=== PATIENT | male | born 1940 | race Caucasian/White ===

== ENCOUNTER → 2016-04-22 | Outpatient (CLI) | payer OTHER, MEDICARE | LOC: MMPC 09:00 | PROVIDERS: ATTEND Internal Medicine | DX: Z79.01 Long term (current) use of anticoagulants (principal); Z51.81 Encounter for therapeutic drug level monitoring; Z86.711 Personal history of pulmonary embolism; Z86.718 Personal history of other venous thrombosis and embolism | CPT/HCPCS: 85610 ==

== ENCOUNTER → 2016-05-02 | Outpatient (CLI) | payer OTHER, MEDICARE | LOC: MMPC 10:00 | PROVIDERS: ATTEND Podiatrist Foot & Ankle Surgery | DX: L60.9 Nail disorder, unspecified (principal); E11.9 Type 2 diabetes mellitus without complications; M10.9 Gout, unspecified; Z86.718 Personal history of other venous thrombosis and embolism | CPT/HCPCS: 99212; G0463 ==

== ENCOUNTER → 2016-05-27 | Outpatient (CLI) | payer OTHER, MEDICARE | LOC: MMPC 09:00 | PROVIDERS: ATTEND Internal Medicine | DX: Z79.01 Long term (current) use of anticoagulants (principal); Z51.81 Encounter for therapeutic drug level monitoring; Z86.718 Personal history of other venous thrombosis and embolism | CPT/HCPCS: 85610 ==

== ENCOUNTER → 2016-06-01 | Outpatient (CLI) | payer OTHER, MEDICARE ==
[2016-06-01 07:46] LABS: BASOPHILS # (AUTO) 0.03 10*3/UL; BASOPHILS % (AUTO) 0.3 % (0-1); EOSINOPHILS % (AUTO) 3.6 % (0-8); HEMATOCRIT 42.5 % (42.0-52.0); HEMOGLOBIN 13.9 g/dL (14.0-18.0); IMM GRAN % (AUTO) 0.3 % (0-5); IMM GRAN# (AUTO) 0.03 10*3/UL; LYMPHOCYTES # (AUTO) 1.27 10*3/uL; LYMPHOCYTES % (AUTO) 11.3 % (10-50); MEAN CORPUSCULAR HEMOGLOBIN 31.7 PG (27-31); MEAN CORPUSCULAR HGB CONC 32.7 g/dL (33-37); MEAN PLATELET VOLUME 10.5 FL (7.4-12.2); MONOCYTES # (AUTO) 0.86 10*3/UL (0.3-0.8); MONOCYTES % (AUTO) 7.6 % (5-15); NEUTROPHILS # (AUTO) 8.66 10*3/UL; NEUTROPHILS % (AUTO) 76.9 % (50-80); RDW COEFFICIENT OF VARIATION 14.9 % (11.5-14.5); RED BLOOD COUNT 4.39 10^6/uL (4.70-6.10); WHITE BLOOD COUNT 11.25 10^3/uL (4.8-10.8)
[2016-06-01 07:52] LABS: PLATELET MORPHOLOGY COMMENT NORMAL MORPHOLOGY (NORM)
[2016-06-01 08:03] LABS: BILIRUBIN,TOTAL 0.5 mg/dL (0.3-1.2); BUN/CREATININE RATIO 26.25 (6-20); CALCIUM 10.1 mg/dL (8.7-10.7); CREATININE 0.8 mg/dL (0.70-1.50); LDL CHOLESTEROL,CALCULATED 59.8 mg/dL; POTASSIUM 4.4 meq/L (3.8-5.2); TOTAL PROTEIN 6.7 g/dL (6.1-8.0)
[2016-06-01 08:10] LABS: CREATININE, URINE 152.5 MG/DL (15-500)
== END ==
LOC: LAB 07:14
PROVIDERS: ATTEND Internal Medicine
DX: E11.9 Type 2 diabetes mellitus without complications (principal); Z79.4 Long term (current) use of insulin; E78.5 Hyperlipidemia, unspecified; I10 Essential (primary) hypertension; D64.9 Anemia, unspecified; Z12.5 Encounter for screening for malignant neoplasm of prostate
CPT/HCPCS: 36415; 80053; 80061; 82043; 82550; 83036; 84550; 85025; G0103

== ENCOUNTER → 2016-06-12 | Outpatient (CLI) | payer OTHER, MEDICARE | LOC: MMPC 11:11 | PROVIDERS: ATTEND Internal Medicine | DX: E11.9 Type 2 diabetes mellitus without complications (principal); I10 Essential (primary) hypertension; J44.9 Chronic obstructive pulmonary disease, unspecified; I25.10 Atherosclerotic heart disease of native coronary artery without angina pectoris; J98.4 Other disorders of lung; E78.5 Hyperlipidemia, unspecified; M10.9 Gout, unspecified; N40.0 Benign prostatic hyperplasia without lower urinary tract symptoms; E66.9 Obesity, unspecified; G20 Parkinson's disease; Z86.711 Personal history of pulmonary embolism | CPT/HCPCS: 99215; G0463 ==

== ENCOUNTER → 2016-07-23 | Outpatient (CLI) | payer OTHER, MEDICARE | LOC: MMPC 11:11 | PROVIDERS: ATTEND Nurse Practitioner | DX: J44.9 Chronic obstructive pulmonary disease, unspecified (principal) | CPT/HCPCS: 99213; G0463 ==

== ENCOUNTER → 2016-07-29 | Outpatient (CLI) | payer OTHER, MEDICARE | LOC: MMPC 09:00 | PROVIDERS: ATTEND Internal Medicine | DX: Z79.01 Long term (current) use of anticoagulants (principal); Z51.81 Encounter for therapeutic drug level monitoring; Z86.711 Personal history of pulmonary embolism; Z86.718 Personal history of other venous thrombosis and embolism | CPT/HCPCS: 85610 ==

== ENCOUNTER → 2016-08-26 | Outpatient (CLI) | payer OTHER, MEDICARE | LOC: MMPC 09:00 | PROVIDERS: ATTEND Internal Medicine | DX: Z79.01 Long term (current) use of anticoagulants (principal); Z51.81 Encounter for therapeutic drug level monitoring; Z86.718 Personal history of other venous thrombosis and embolism | CPT/HCPCS: 85610 ==

== ENCOUNTER → 2016-09-10 | Outpatient (CLI) | payer OTHER, MEDICARE ==
[2016-09-10 15:06] LABS: HEMOGLOBIN A1C 6.66 % (4.2-6.0)
== END ==
LOC: LAB 14:22
PROVIDERS: ATTEND Internal Medicine
DX: E11.9 Type 2 diabetes mellitus without complications (principal); Z79.4 Long term (current) use of insulin
CPT/HCPCS: 36415; 83036

== ENCOUNTER → 2016-09-11 | Outpatient (CLI) | payer OTHER, MEDICARE ==
[2016-09-11 09:10] LABS: CREATININE, URINE 151.2 MG/DL (15-500)
== END ==
LOC: LAB 08:15
PROVIDERS: ATTEND Internal Medicine
DX: E11.9 Type 2 diabetes mellitus without complications (principal); Z79.4 Long term (current) use of insulin
CPT/HCPCS: 82043

== ENCOUNTER 2016-09-23 15:20 | Emergency (ER) | payer OTHER, MEDICARE ==
[2016-09-23] MEDS ORDERED: ONDANSETRON 4 MG/2 ML VIAL IVP ONE (15:47)
[2016-09-23] MEDS ORDERED: IPRATROPIUM/ALBUTEROL SULFATE 3 ML NEB NEB ONE ×2 (15:47→15:49)
[2016-09-23] MEDS ORDERED: Sodium Chloride 0.9% 1,000 ML PRIMARY IV ONE (15:47)
[2016-09-23 15:48] VITALS: RESP 18; TEMP 96.6
--- NOTE | 2016-09-23 15:54 | PDOC ---
Upper Respiratory HPI - General Chief Complaint: Cough / URI Stated Complaint: "thinks he might have pneuomonia" Date Seen by Provider: 09/23/16 Time Seen by Provider: 15:49 Source: POSITIVE: Patient, Spouse Exam Limitations: POSITIVE: No limitations Nurse's Notes Reviewed & Considered: Yes - History of Present Illness Initial Comments: Patient comes in today with a chief complaint of shortness of breath. Patient with cough, shortness of breath, sweats, and increased oxygen requirements. His symptoms began over the weekend and began to escalate today. His states he had a fever to 100 on Friday. Patient's baseline oxygen requirements are 3 L presently that is only sufficient to maintain his oxygenation at 90%. He does have a headache, denies any sore throat, he does have dry mucous membranes, no chest pain, he has a productive cough, denies any nausea vomiting or diarrhea, no hematuria or dysuria however he does have difficulty urinating secondary to prostate enlargement and urethral stricture. Denies any arthralgias, but he does have mild myalgias. Timing: REPORTS: Constant, Getting Worse Duration: <1 week Severity: Moderate Modifying Factors: improves with: Coughing Associated Symptoms: REPORTS: Sweating, Sinus Drainage, Cough, Productive Cough , Shortness of Breath Similar Symptoms Previously: Yes Recently seen/treated/hospitalized: No Any Prior Injuries Related to Current Complaint?: No - Patient Home Medications Home Medications: Home Medications Aspirin [Baby Aspirin] 1 tab ORAL QD tab 07/10/10 Docusate Sodium [Colace] 1 cap ORAL BID capsule 07/10/10 Vitamin D-3 2,000 unit PO QD 90 Days 05/09/11 Terreton, Insulin Disposable [Pen Terreton] 1 each QD #100 unit 10/09/15 Blood Sugar Diagnostic [Freestyle Lite Test Strips] 1 each QID #360 strip Insulin Lispro Flexpen Inj [Humalog Flexpen Inj] 0 - 12 unit SQ AC #1 vial 03/11 Allopurinol 1 tab PO QD #90 tab 06/12/16 Carbidopa/Levodopa [Sinemet Cr 50-200 Tablet] 1 tab PO BID #180 tab 06/12/16 Finasteride 1 tab-cap PO DAILY #90 tab 06/12/16 Losartan Potassium 1 tab PO DAILY #90 tab 06/12/16 Metformin HCl [Glucophage] 1 tab ORAL BID #180 tab 06/12/16 Pravastatin Sodium [Pravachol] 1 tab PO QHS #90 tab 06/12/16 Tamsulosin HCl [Flomax] 0.4 mg ORAL QHS #90 capsule 06/12/16 Venlafaxine HCl [Venlafaxine Hcl Er] 1 cap PO DAILY #90 cap 06/12/16 Warfarin Sodium 1 - 2 tab PO DAILY #180 tab 06/13/16 Albuterol/Ipratrop Neb Soln [Duoneb Neb Soln] 3 ml INH QID #120 inh 07/23/16 Dextromethorphan HBr/Chlor-Mal [Robitussin Long-Acting Liq] 5 ml PO [id number] PRN #180 ml 07/23/16 Guaifenesin/Codeine Phosphate [Guaifen-Codeine 100-10 Mg/5 Ml] 5 ml PO QHS PRN # 45 ml 07/23/16 Insulin Glargine SoloStar Inj [Lantus Solostar Inj] Sample #4 07/23/16 Fluticasone/Vilanterol [Breo Ellipta 100-25 Mcg Inh] Sample #6 09/11/16 Insulin Glargine SoloStar Inj [Lantus Solostar Inj] Sample #1 09/11/16 Ropinirole HCl 1 tab ORAL TID #270 tab 09/11/16 Clonazepam 0.5 - 1 tab ORAL TID PRN #180 tab 09/17/16 - Patient Allergies Allergies/Adverse Reactions: Allergies Allergy/AdvReac Type Severity Reaction Status Date / Time propoxyphene napsylate Allergy Intermediate RASH Verified 09/23/16 15:29 [From Darvocet-N 100] zolpidem tartrate Allergy Intermediate "made him Verified 09/23/16 15:29 [Zolpidem Tartrate] go crazy" Past Medical History - heen HEENT History: Hard of Hearing, Dentures/Partials Additional HEENT History: HEARING AIDS. GLASSES Cardiovascular History: Hypertension, Previous SD, CAD, DVTs, Hyperlipidemia Additional Cardiovasular History: HEART CATH WITHOUT STENTING Respiratory History: COPD, Sleep Apnea, Home Oxygen Use, Pulmonary Embolism Additional Respiratory History: 3 LITERS O2 WHEN MOBILE, 4L O2 ON HOME CONCENTRATOR Gastrointestinal History: GERD Genitourinary History: Denies History Endocrine History: Type 2 Diabetes (oral) Additional Endocrine History: HYPERPARATHYROIDISM Musculoskeletal History: Arthritis, Gout Prosthesis or Implant: Yes (BILAT KNEES) Neurological History: Migraines Additional Neurological History: INFREQUENTLY Blood Disorders: Denies History Additional Blood Disorders History: ANTICOAGULATION THERAPY FOR DVT'S Psychiatric History: Depression History of Sexually Transmitted Diseases: No Male Reproductive History: Denies History Cancer History: Skin In Past Year Been Physically Harmed or Verbally Threatened: No History of MDRO: No History of Other Communicable Diseases: No Tobacco Use: Never Smoker Alcohol Use: None Substance Use Type: None Previous Surgical History: Yes Type / Date of Surgery: OSCAR/ CORONARY ANGIOPLASTY/ HEMORRHOID REPAIR/ HIATAL HERNIA SX/ BILAT TKA/MELANOMA Anesthesia Reactions: No Malignant Hyperthermia: No Significant Family History: No pertinent family hx Additional Family History: MOTHER ROS - Limitations ROS Limitations: No Limitations Constitution: REPORTS: Diaphoresis Cardiovascular: REPORTS: Denies Cardiac Symptoms Respiratory: REPORTS: Cough Productive, Hurts To Breathe, Shortness Of Breath Neurological: REPORTS: Headache Gastrointestinal: REPORTS: Denies GI Symptoms Endocrine: REPORTS: Elevated Glucose Musculoskeletal: REPORTS: Muscle Aches Genitourinary: REPORTS: Difficulty Urinating Eyes: REPORTS: Denies Symptoms ENT: REPORTS: Denies Symptoms Skin: REPORTS: Denies Skin Symptoms Lympathic: REPORTS: Denies Lympathic Symptoms Immunologic: POSITIVE: Denies Symptoms Psychiatric: POSITIVE: Denies Psych Symptoms Upper Respiratory/Fever Exam - General Appearance General Appearance: REPORTS: Alert, Cooperative, No Evidence of Trauma, Mild Distress - HEENT HEENT: POSITIVE: Head Inspection Nml, Eyes Inspection Nml, Ears Inspection Nml, Nose Inspection Nml, Pharynx Inspect. Nml, PERRL, EOMI, Dry Mucous Membranes - Neck Neck: REPORTS: Normal Inspection, Supple - Respiratory Respiratory: REPORTS: Prolonged Expirations, Accessory Muscle Use, Decreased Air Movement - Abdomen Abdomen: Soft: (All Quadrants), Normal Bowel Sounds: (All Quadrants), Denies Tenderness: (All Quadrants), Distention: (All Quadrants) - Cardiovascular Cardiovascular: REPORTS: Regular Rate and Rhythm, Heart Sounds Normal, No Murmur , No Gallop, No Friction Rub, No JVD - Skin Skin: REPORTS: Intact, Normal For Race, Warm, Dry, No Rash - Extremities Extremity: Non-Tender: (All Extremities), Normal ROM: (All Extremities), Normal Inspection: (All Extremities), Pelvis Stable: (All Extremities) - Neurological / Psychological Neurological: POSITIVE: Affect Apporpriate, Oriented X3, Motor Normal, Sensation Normal Upper Resp/Fever Progress - Results Reviewed by me Xrays/CTs/US Reviewed by me: Yes Discussed with Radiologist: Yes Lab Results Reviewed: Yes Lab Results:: Laboratory Results 09/23/16 09/23/16 09/23/16 Range/Units 15:47 16:01 16:12 WBC 8.12 (4.8-10.8) 10^3/uL RBC 4.38 L (4.70-6.10) 10^6/uL Hgb 13.6 L (14.0-18.0) g/dL Hct 42.2 (42.0-52.0) % MCV 96.3 H (80-90) FL MCH 31.1 H (27-31) PG MCHC 32.2 L (33-37) g/dL RDW Std Deviation 52.7 H (39-50) fL RDW Coeff of Cheng 15.3 H (11.5-14.5) % Plt Count 177 (140-350) 10*3/uL MPV 10.8 (7.4-12.2) FL Immature Gran % (Auto) 0.5 (0-5) % Neut % (Auto) 65.8 (50-80) % Lymph % (Auto) 19.6 (10-50) % [place] % (Auto) 10.5 (5-15) % Eos % (Auto) 3.4 (0-8) % Baso % (Auto) 0.2 (0-1) % Immature Gran # (Auto) 0.04 10*3/UL Neut # (Auto) 5.34 10*3/UL Lymph # (Auto) 1.59 10*3/uL [place] # (Auto) 0.85 H (0.3-0.8) 10*3/UL Eos # (Auto) 0.28 10*3/UL Baso # (Auto) 0.02 10*3/UL WBC Morphology Comment Normal morphology (NORM) Plt Morphology Comment Normal morphology (NORM) RBC Morph Comment Normal morphology (NORM) PT 10.8 (9.7-11.4) secs INR 1.05 (0.00-5.90) N/A D-Dimer < 0.19 (0.00-0.59) mg/L VBG pH 7.40 (7.32-7.42) VBG pCO2 47 (45-55) mmHg VBG HCO3 29 H (22-26) mmol/L VBG Base Excess 4 H (-2-2) MMOL/L Sodium 140 (135-145) meq/L Potassium 4.3 (3.8-5.2) meq/L Chloride 102 (98-112) meq/L Carbon Dioxide 29 (23-33) meq/L Anion Gap 9 (5-20) BUN 18 (7-22) mg/dL Creatinine 0.8 (0.70-1.50) mg/dL Estimated GFR (>60 ml/min/1.73m(2)) BUN/Creatinine Ratio 22.50 H (6-20) Glucose 132 H (78-110) mg/dL Mean Blood Glucose 140.773 mg/dL Hemoglobin A1c 6.81 H (4.2-6.0) % Calculated Osmolality 293.0 H (267-292) mOsm/kg Lactic Acid 1.4 (0.70-2.10) MMOL/L Calcium 9.4 (8.7-10.7) mg/dL Magnesium 1.8 (1.6-2.4) mg/dL Total Bilirubin 0.3 (0.3-1.2) mg/dL AST 19 L (21-57) IU/L ALT 31 (21-72) IU/L Alkaline Phosphatase 80 (38-126) IU/L C-Reactive Protein 2.3 H (0.0-0.9) mg/dL NT-Pro-B Natriuret Pep 64.9 (0-125) PG/ML Total Protein 6.2 (6.1-8.0) g/dL Albumin 3.6 (3.5-4.8) g/dL Globulin 2.7 (2.50-4.10) g/dL Albumin/Globulin Ratio 1.30 (1.3-2.0) mg/g EKG Interpretation:: POSITIVE: Normal Sinus Rhythm - Patient's Progress Pain Medication Addressed: POSITIVE: Yes Re-Examine Time: 19:39 Status: POSITIVE: Improved MDM / ED Course: Patient was examined, IV started, blood drawn and sent to the lab for studies, radiographic examinations were obtained. Patient received IV fluids of normal saline, IV Rocephin, oral azithromycin. Findings: CBC shows a normal white count with a slight anemia. Comprehensive metabolic panel is unremarkable. BUN is normal. D-dimer is normal. Chest x- ray per my interpretation shows an enlarged heart and pulmonary vascular congestion. CT scan shows no PE, no pneumonia, there is atelectasis present. INR is 1. Assessment: Shortness of breath. This appears to be a case of a viral upper respiratory infection resulting in shortness of breath couple with his obese abdomen and enlarged heart. INR is subtherapeutic. Plan: Discharge home on azithromycin 500 mg by mouth for 2 more days. He is to follow-up with Dr. Franklin for his INR. He is to return to the emergency room if fevers are over 102, increasing shortness of breath, or other concerns. Air Movement: Fair Antibiotics Given: Yes Nebulizer Treatment Given:: Yes Quality Measure Initiative: CAP: POSITIVE: Antibiotic(s), CXR or CT - Consult Counseled: POSITIVE: Patient, Family, RE: Lab Results, RE: Radiology Results, RE : DX, RE: Need for F/U Patient Care Time - Estimated PCT Patient Care Time (In Minutes): 45 Vital Signs - Recent Vital Signs Vital Signs: Vital Signs (Last 8 hours) Temp Pulse Resp BP Pulse Ox 09/23/16 15:20 96.6 F L 82 18 143/92 91 - VS Reviewed Vital Signs Reviewed: Yes Discharge Clinical Impression: Upper respiratory infection Discharge Disposition: Discharged to Home Condition: Stable Patient Instructions Given at Discharge: Upper Respiratory Infection (ED)
[2016-09-23 16:15] LABS: BASOPHILS # (AUTO) 0.02 10*3/UL; BASOPHILS % (AUTO) 0.2 % (0-1); EOSINOPHILS # (AUTO) 0.28 10*3/UL; EOSINOPHILS % (AUTO) 3.4 % (0-8); HEMATOCRIT 42.2 % (42.0-52.0); HEMOGLOBIN 13.6 g/dL (14.0-18.0); LYMPHOCYTES # (AUTO) 1.59 10*3/uL; MEAN CORPUSCULAR HEMOGLOBIN 31.1 PG (27-31); MEAN CORPUSCULAR HGB CONC 32.2 g/dL (33-37); MEAN CORPUSCULAR VOLUME 96.3 FL (80-90); MEAN PLATELET VOLUME 10.8 FL (7.4-12.2); MONOCYTES # (AUTO) 0.85 10*3/UL (0.3-0.8); MONOCYTES % (AUTO) 10.5 % (5-15); NEUTROPHILS # (AUTO) 5.34 10*3/UL; NEUTROPHILS % (AUTO) 65.8 % (50-80); RED BLOOD COUNT 4.38 10^6/uL (4.70-6.10)
[2016-09-23 16:16] LABS: PLATELET MORPHOLOGY COMMENT NORMAL MORPHOLOGY (NORM); RBC MORPHOLOGY COMMENT NORMAL MORPHOLOGY (NORM); WBC MORPHOLOGY COMMENT NORMAL MORPHOLOGY (NORM)
--- NOTE | 2016-09-23 16:16 | EKG ---
[address] [place] [address] Measurements Intervals [place] Rate: 76 P: -4 NE: 173 QRS: -24 QRSD: 141 T: 30 QT: 390 QTc: 420 Interpretive Statements SINUS RHYTHM BORDERLINE LEFT AXIS DEVIATION [QRS AXIS < -20] RIGHT BUNDLE BRANCH BLOCK [120+ ms QRS DURATION, UPRIGHT V1, 40+ ms S IN I/aVL/V4/V5/V6] MINIMAL VOLTAGE CRITERIA FOR LVH, CONSIDER NORMAL VARIANT [MEETS CRITERIA IN ONE OF: R(aVL), S(V1), R(V5), R(V5/V6)+S(V1)] Compared to ECG 07/25/2014 12:13:53 No significant changes Electronically Signed On 09-24-16 12:18:46 MDT by Cisco Dobson MD [email or web address]
[2016-09-23 16:24] LABS: VENOUS PH 7.4 (7.32-7.42)
[2016-09-23 16:30] LABS: BUN/CREATININE RATIO 22.5 (6-20); C-REACTIVE PROTEIN 2.3 mg/dL (0.0-0.9); CALCIUM 9.4 mg/dL (8.7-10.7); MAGNESIUM 1.8 mg/dL (1.6-2.4); SERUM ALBUMIN 3.6 g/dL (3.5-4.8)
[2016-09-23 16:32] LABS: HEMOGLOBIN A1C 6.81 % (4.2-6.0)
[2016-09-23] MEDS ORDERED: FUROSEMIDE 10 MG/1 ML - 4 ML IVP ONE (17:28)
[2016-09-23] MEDS ORDERED: AZITHROMYCIN 250 MG TABLET PO ONE (17:28)
[2016-09-23] MEDS ORDERED: cefTRIAXone Inj 2 GM in Sodium Chloride 0.9% 100 ML IV ONE (17:28)
--- NOTE | 2016-09-23 19:10 | DI ---
CT CTA CHEST NONCORONARY W/WO,09/23/2016 5:30 PM: Clinical History: Shortness of breath Previous Exam: July 22, 2014 Findings: Multiple helically acquired CT images are obtained through the chest following a CT chest angiogram p rotocol after intravenous administration of 100 mL of Isovue 300, and demonstrate a normal variant ao rta with the right subclavian are arising from the common carotid artery. There is deviation of the e sophagus and trachea around the left subclavian artery and left carotid artery. Pulmonary arteries are normal and symmetric without filling defects or truncation to suggest pulmonar y embolism. There is subsegmental atelectasis in both lung bases. The pulmonary veins are unremarkable. A few per ipheral vascular calcifications are seen. Mild degenerative changes of the spine are noted. There is some thickening of the esophagus which is not well evaluated on this exam. Impression: 1. No evidence of pulmonary embolism. 2. Thickening of the esophagus most consistent with esophagitis. 3. Subsegmental atelectasis in the lung bases.
--- NOTE | 2016-09-24 08:50 | DI ---
XR CXR 1VW,09/23/2016 3:47 PM: Clinical History: Shortness of breath, fever and cough Previous Exam: July 22, 2014 Findings: A single frontal radiograph of the chest is obtained, and demonstrate clear lungs. The cardiomediasti num and bony thorax are unremarkable. Impression: No acute disease.
== END 2016-09-23 20:05 | disposition home or self-care (01) ==
LOC: ER 15:20
DX: J06.9 Acute upper respiratory infection, unspecified (principal); R05 Cough; R50.9 Fever, unspecified; R51 Headache; E11.9 Type 2 diabetes mellitus without complications; I10 Essential (primary) hypertension; R06.02 Shortness of breath; Z86.718 Personal history of other venous thrombosis and embolism; Z79.01 Long term (current) use of anticoagulants; Z79.4 Long term (current) use of insulin
CPT/HCPCS: 36415 ×2; 71010; 71275; 80053; 82803; 83036; 83605; 83735; 83880; 85025; 85379; 85610; 86140; 86738; 87040; 93005; 93010; 94640; 96365; 96375; 99284 ×2; J7620; J0696; J2405; J7030; J7050

== ENCOUNTER → 2016-09-26 | Outpatient (CLI) | payer OTHER, MEDICARE ==
[2016-09-26 17:04] LABS: BUN/CREATININE RATIO 24.44 (6-20); CALCIUM 9.6 mg/dL (8.7-10.7); SERUM ALBUMIN 3.6 g/dL (3.5-4.8)
== END ==
LOC: LAB 15:34
PROVIDERS: ATTEND Internal Medicine
DX: E11.9 Type 2 diabetes mellitus without complications (principal); J44.9 Chronic obstructive pulmonary disease, unspecified; I25.10 Atherosclerotic heart disease of native coronary artery without angina pectoris; I10 Essential (primary) hypertension; E78.5 Hyperlipidemia, unspecified; E66.9 Obesity, unspecified; G62.89 Other specified polyneuropathies; Z86.711 Personal history of pulmonary embolism; Z86.718 Personal history of other venous thrombosis and embolism
CPT/HCPCS: 36415; 80053; 85610

== ENCOUNTER → 2016-09-27 | Outpatient (CLI) | payer OTHER, MEDICARE | LOC: MMPC 11:11 | PROVIDERS: ATTEND Nurse Practitioner | DX: J98.4 Other disorders of lung (principal) | CPT/HCPCS: 99213; G0463 ==

== ENCOUNTER → 2016-09-30 | Outpatient (CLI) | payer OTHER, MEDICARE | LOC: MMPC 09:00 | PROVIDERS: ATTEND Internal Medicine | DX: Z79.01 Long term (current) use of anticoagulants (principal); Z51.81 Encounter for therapeutic drug level monitoring; Z86.711 Personal history of pulmonary embolism; Z86.718 Personal history of other venous thrombosis and embolism | CPT/HCPCS: 85610 ==

== ENCOUNTER 2016-10-03 15:59 | Emergency (ER) | payer OTHER, MEDICARE ==
[2016-10-03] MEDS ORDERED: Sodium Chloride 0.9% 1,000 ML PRIMARY IV ONE (16:38)
[2016-10-03] MEDS ORDERED: NORMAL SALINE 10 ML SYRINGE FLUSH IVP PRN (16:38)
[2016-10-03 17:03] LABS: VENOUS PH 7.4 (7.32-7.42)
[2016-10-03 17:10] LABS: BASOPHILS # (AUTO) 0.05 10*3/UL; BASOPHILS % (AUTO) 0.5 % (0-1); EOSINOPHILS # (AUTO) 0.23 10*3/UL; EOSINOPHILS % (AUTO) 2.3 % (0-8); HEMATOCRIT 42.2 % (42.0-52.0); HEMOGLOBIN 13.7 g/dL (14.0-18.0); LYMPHOCYTES # (AUTO) 1.46 10*3/uL; MEAN CORPUSCULAR HGB CONC 32.5 g/dL (33-37); MEAN CORPUSCULAR VOLUME 95.5 FL (80-90); MEAN PLATELET VOLUME 10.7 FL (7.4-12.2); MONOCYTES # (AUTO) 0.91 10*3/UL (0.3-0.8); NEUTROPHILS # (AUTO) 7.38 10*3/UL; NEUTROPHILS % (AUTO) 73.4 % (50-80); RED BLOOD COUNT 4.42 10^6/uL (4.70-6.10)
[2016-10-03 17:14] LABS: PLATELET MORPHOLOGY COMMENT NORMAL MORPHOLOGY (NORM); RBC MORPHOLOGY COMMENT NORMAL MORPHOLOGY (NORM); WBC MORPHOLOGY COMMENT NORMAL MORPHOLOGY (NORM)
[2016-10-03 17:25] VITALS: RESP 18; TEMP 99.2
[2016-10-03] MEDS ORDERED: IPRATROPIUM/ALBUTEROL SULFATE 3 ML NEB NEB ONE ×2 (17:29→17:32)
[2016-10-03 17:38] LABS: BUN/CREATININE RATIO 22.72 (6-20); C-REACTIVE PROTEIN 1.6 mg/dL (0.0-0.9); CALCIUM 9.5 mg/dL (8.7-10.7); SERUM ALBUMIN 3.6 g/dL (3.5-4.8)
--- NOTE | 2016-10-03 18:20 | DI ---
HISTORY: Cough and fever. COMPARISON: 09/23/2016. FINDINGS: Borderline cardiomegaly is noted. Compared to the previous examination of 09/23/2016, the is mild pulmonary vascular congestion in both lower lung perales, especially in the left lung base. The lung perales are otherwise essentially clear. IMPRESSION: 1. Borderline cardiomegaly is noted. 2. Mild pulmonary vascular congestion in both lower lung perales, especially in the left lung base. C linical correlation is requested.
[2016-10-03 19:13] LABS: BILIRUBIN,URINE NEGATIVE (NEG); CLARITY,URINE CLEAR (CLEAR); COLOR,URINE YELLOW; GLUCOSE, URINE (UA) 100 mg/dL (NEG); NITRATE,URINE NEGATIVE (NEG); OCCULT BLOOD,URINE NEGATIVE (NEG); PH,URINE 5.5 (5.0-8.5); PROTEIN,URINE 30 mg/dl (NEG); UROBILINOGEN,URINE 0.2 EU/dL (0.2)
--- NOTE | 2016-10-03 19:14 | DI ---
HISTORY: Hematuria. Cough. Hypoxia. COMPARISON: 10/03/2016. TECHNIQUE: Serial axial images of the chest, abdomen and pelvis were obtained with coronal and sagit leana reformats. FINDINGS: There is no evidence of mediastinal or hilar adenopathy. The heart is normal in size. Th e visualized portions of the tracheobronchial tree are normal. No parenchymal or pleural abnormaliti es are noted. There is a 1.8 cm indeterminate nodule in the left adrenal gland. The liver and spleen are normal in size and contour and demonstrate no focal abnormalities. The gall bladder is unremarkable and no intra- or extrahepatic biliary ductal dilatation is identified. The p ancreas and right adrenal gland is normal. The kidneys are in anatomic position. There is no eviden ce of renal calculi, hydronephrosis or solid renal masses. The visualized bowel, mesentery and omentum are unremarkable with no evidence of obstruction or perfo ration. No abnormal masses, lymphadenopathy or fluid collections are identified. There is a small l eft inguinal hernia containing fat. IMPRESSION: 1. There is a 1.8 cm indeterminate nodule in the left adrenal gland. MRI recommended for further fredy luation.
[2016-10-03 19:21] LABS: URINE SAMPLE TYPE CLEAN CATCH URINE
[2016-10-03 19:22] LABS: BACTERIA,URINE RARE; SQUAMOUS EPITHELIAL CELL,UR RARE
--- NOTE | 2016-10-04 01:47 | PDOC ---
General Adult HPI - General Chief Complaint: Genitourinary Complaint Stated Complaint: BLOOD IN URINE, CONFUSION, BRONCHITIS Date Seen by Provider: 10/03/16 Time Seen by Provider: 16:10 Source: POSITIVE: Patient, Spouse Exam Limitations: POSITIVE: No limitations Nurse's Notes Reviewed & Considered: Yes - History of Present Illness Initial Comment: The patient is a 75-year-old male. He is brought to the emergency room by his . For about the past 9 days the patient has reportedly had a cough. He was seen in the emergency room at that time and was diagnosed with bronchitis and was given a 2 day course of Zithromax. states that he has continued to cough and she also states that she has noted possibly some "blood in the urine" for the past 3 days. Patient's temperature was reportedly 99.2F today. Patient has a history of Alzheimer's disease and Parkinson's and is dependent on his for his care. He also has a history of diabetes mellitus for which he takes Lantus and Humalog. states his blood glucose levels have been between 165 in the low 200s. Patient has a history of having had pulmonary emboli and DVTs and is presently on warfarin, 5 mg daily except for Friday and Friday, at which time she takes 7.5 mg. Patient has a history of coronary artery disease and underwent an angioplasty in the past. He is on oxygen 3 L/m at home. Have you received a tetanus shot in the past 10 years?: Yes Body Location Affected: REPORTS: Chest, Genitalia (As above) Timing: REPORTS: Constant Duration: >1 week (9 days) Severity: Moderate Quality: REPORTS: Other (No pain anywhere) Context: REPORTS: None Modifying Factors: improves with: Coughing Similar Symptoms Previously: Yes (as above) Recent Care Received: REPORTS: Recently Seen, Treated by MD (As above) Any Prior Injuries Related to Current Complaint?: No - Patient Home Medications Home Medications: Home Medications Aspirin [Baby Aspirin] 1 tab ORAL QD tab 07/10/10 Docusate Sodium [Colace] 1 cap ORAL BID capsule 07/10/10 Vitamin D-3 2,000 unit PO QD 90 Days 05/09/11 [place], Insulin Disposable [Pen [place]] 1 each QD #100 unit 10/09/15 Blood Sugar Diagnostic [Freestyle Lite Test Strips] 1 each QID #360 strip Insulin Lispro Flexpen Inj [Humalog Flexpen Inj] 0 - 12 unit SQ AC #1 vial 03/11 Allopurinol 1 tab PO QD #90 tab 06/12/16 Carbidopa/Levodopa [Sinemet Cr 50-200 Tablet] 1 tab PO BID #180 tab 06/12/16 Finasteride 1 tab-cap PO DAILY #90 tab 06/12/16 Losartan Potassium 1 tab PO DAILY #90 tab 06/12/16 Metformin HCl [Glucophage] 1 tab ORAL BID #180 tab 06/12/16 Pravastatin Sodium [Pravachol] 1 tab PO QHS #90 tab 06/12/16 Tamsulosin HCl [Flomax] 0.4 mg ORAL QHS #90 capsule 06/12/16 Venlafaxine HCl [Venlafaxine Hcl Er] 1 cap PO DAILY #90 cap 06/12/16 Albuterol/Ipratrop Neb Soln [Duoneb Neb Soln] 3 ml INH QID #120 inh 07/23/16 Dextromethorphan HBr/Chlor-Mal [Robitussin Long-Acting Liq] 5 ml PO [id number] PRN #180 ml 07/23/16 Ropinirole HCl 1 tab ORAL TID #270 tab 09/11/16 Clonazepam 0.5 - 1 tab ORAL TID PRN #180 tab 09/17/16 Insulin Glargine SoloStar Inj [Lantus SoloStar Inj] 100 unit SQ BEDTIME Warfarin Sodium 5 mg PO .FRI - FRI - Fri10/03/16 Warfarin Sodium 7.5 mg PO .[id number] 10/03/16 - Patient Allergies Allergies/Adverse Reactions: Allergies Allergy/AdvReac Type Severity Reaction Status Date / Time propoxyphene napsylate Allergy Intermediate RASH Verified 10/03/16 16:04 [From Darvocet-N 100] zolpidem tartrate Allergy Intermediate "made him Verified 10/03/16 16:04 [Zolpidem Tartrate] go crazy" Past Medical History - heen HEENT History: Hard of Hearing, Dentures/Partials Additional HEENT History: HEARING AIDS. GLASSES Cardiovascular History: Hypertension, Previous [place], CAD, DVTs, Hyperlipidemia Additional Cardiovasular History: HEART CATH WITHOUT STENTING Respiratory History: COPD, Sleep Apnea, Home Oxygen Use, Pulmonary Embolism Additional Respiratory History: 3 LITERS O2 WHEN MOBILE, 4L O2 ON HOME CONCENTRATOR Gastrointestinal History: GERD Genitourinary History: Denies History Endocrine History: Type 2 Diabetes (oral) Additional Endocrine History: HYPERPARATHYROIDISM Musculoskeletal History: Arthritis, Gout Prosthesis or Implant: Yes (BILAT KNEES) Neurological History: Alzheimer's, Migraines Additional Neurological History: INFREQUENTLY Blood Disorders: Denies History Additional Blood Disorders History: ANTICOAGULATION THERAPY FOR DVT'S Psychiatric History: Depression History of Sexually Transmitted Diseases: No Cancer History: Skin Cancer Treatment / Date(s) of Treatment: removed In Past Year Been Physically Harmed or Verbally Threatened: No History of MDRO: No History of Other Communicable Diseases: No Tobacco Use: Never Smoker Alcohol Use: Rarely Substance Use Type: None Previous Surgical History: Yes Type / Date of Surgery: OSCAR/ CORONARY ANGIOPLASTY/ HEMORRHOID REPAIR/ HIATAL HERNIA SX/ BILAT TKA/MELANOMA Anesthesia Reactions: No Malignant Hyperthermia: No Significant Family History: No pertinent family hx Additional Family History: MOTHER Past Medical History Reviewed: Reviewed - No Changes ROS - Limitations ROS Limitations: No Limitations Constitution: REPORTS: Fever (Possibly, subjectively) Cardiovascular: REPORTS: Denies Cardiac Symptoms Respiratory: REPORTS: Cough Non Productive Neurological: REPORTS: Denies Neuro Symptoms Gastrointestinal: REPORTS: Denies GI Symptoms Endocrine: REPORTS: Denies Symptoms Musculoskeletal: REPORTS: Denies MS Symptoms Genitourinary: REPORTS: Hematuria ( thinks patient may have had some blood in his urine for the past 3 days; patient is frequently incontinent and wears Depends.) Eyes: REPORTS: Denies Symptoms ENT: REPORTS: Denies Symptoms Skin: REPORTS: Denies Skin Symptoms Lympathic: REPORTS: Denies Lympathic Symptoms Immunologic: POSITIVE: Denies Symptoms Psychiatric: POSITIVE: Denies Psych Symptoms General Adult Exam - General Appearance General Appearance: POSITIVE: Alert, Cooperative, No Acute Distress, No Evidence of Trauma - HEENT HEENT: POSITIVE: Head Inspection Nml, Eyes Inspection Nml, Ears Inspection Nml, Nose Inspection Nml, Oral/Dental Inspect. Nml, Pharynx Inspect. Nml, PERRL, EOMI - Pupils Pupil Size: 3 mm: Bilateral (PERRLA) - Neck Neck: POSITIVE: Normal Inspection, Thyroid Normal - Respiratory Respiratory: POSITIVE: No Respiratory Distress, Rhonchi (Mild scattered rhonchi which mostly clear with deep inspiration) - Cardiovascular Cardiovascular: POSITIVE: Regular Rate & Rhythm, No Murmur, No Gallop, PMI Normal Peripheral Pulses: Radial (R): 2+, Radial (L): 2+ - Abdomen Abdomen: Soft: (All Quadrants), Normal Bowel Sounds: (All Quadrants), Denies Tenderness: (All Quadrants), No Splenomegaly: (All Quadrants), No Hepatomegaly: (All Quadrants), No Guarding: (All Quadrants), No Rebound: (All Quadrants), No Palpable Pulse: (All Quadrants), No Palpabale Mass: (All Quadrants), No Distention: (All Quadrants), No Rigidity: (All Quadrants) Additional Abdominal Details: External genitalia normal; circumcised. - Back Back: POSITIVE: Normal Inspection - Skin Skin: POSITIVE: Normal Color, Warm, Dry, No Rash - Extremities Extremity: Non-Tender: (All Extremities), Normal ROM: (All Extremities), Normal Inspection: (All Extremities) - Neurological / Psychological Neurological: POSITIVE: Oriented X3, platen grinder Normal As Tested, Motor Normal, Sensation Normal, 5, 6 General Adult Progress - Results Reviewed by me Xrays/CTs/US Reviewed by me: Yes Discussed with Radiologist: Yes Radiology Findings: Chest x-ray normal. CT scan chest, abdomen and pelvis with IV contrast read as normal by radiologist. Lab Results Reviewed: Yes Lab Results:: Laboratory Results 10/03/16 10/03/16 10/03/16 Range/Units 16:53 16:55 19:02 WBC 10.06 (4.8-10.8) 10^3/uL RBC 4.42 L (4.70-6.10) 10^6/uL Hgb 13.7 L (14.0-18.0) g/dL Hct 42.2 (42.0-52.0) % MCV 95.5 H (80-90) FL MCH 31.0 (27-31) PG MCHC 32.5 L (33-37) g/dL RDW Std Deviation 52.0 H (39-50) fL RDW Coeff of Cheng 15.4 H (11.5-14.5) % Plt Count 225 (140-350) 10*3/uL MPV 10.7 (7.4-12.2) FL Immature Gran % (Auto) 0.3 (0-5) % Neut % (Auto) 73.4 (50-80) % Lymph % (Auto) 14.5 (10-50) % [place] % (Auto) 9.0 (5-15) % Eos % (Auto) 2.3 (0-8) % Baso % (Auto) 0.5 (0-1) % Immature Gran # (Auto) 0.03 10*3/UL Neut # (Auto) 7.38 10*3/UL Lymph # (Auto) 1.46 10*3/uL [place] # (Auto) 0.91 H (0.3-0.8) 10*3/UL Eos # (Auto) 0.23 10*3/UL Baso # (Auto) 0.05 10*3/UL WBC Morphology Comment Normal morphology (NORM) Plt Morphology Comment Normal morphology (NORM) RBC Morph Comment Normal morphology (NORM) PT 20.8 H (9.7-11.4) secs INR 1.99 (0.00-5.90) N/A APTT 39.9 H (22.6-31.3) SECS D-Dimer < 0.19 (0.00-0.59) mg/L VBG pH 7.40 (7.32-7.42) VBG pCO2 44 L (45-55) mmHg VBG HCO3 27 H (22-26) mmol/L VBG Base Excess 2 (-2-2) MMOL/L Sodium 139 (135-145) meq/L Potassium 4.4 (3.8-5.2) meq/L Chloride 104 (98-112) meq/L Carbon Dioxide 26 (23-33) meq/L Anion Gap 9 (5-20) BUN 25 H (7-22) mg/dL Creatinine 1.1 (0.70-1.50) mg/dL Estimated GFR (>60 ml/min/1.73m(2)) BUN/Creatinine Ratio 22.72 H (6-20) Glucose 189 H (78-110) mg/dL Calculated Osmolality 296.0 H (267-292) mOsm/kg Calcium 9.5 (8.7-10.7) mg/dL Total Bilirubin 0.3 (0.3-1.2) mg/dL AST 18 L (21-57) IU/L ALT 42 (21-72) IU/L Alkaline Phosphatase 72 (38-126) IU/L C-Reactive Protein 1.6 H (0.0-0.9) mg/dL NT-Pro-B Natriuret Pep 52.3 (0-125) PG/ML Total Protein 6.0 L (6.1-8.0) g/dL Albumin 3.6 (3.5-4.8) g/dL Globulin 2.4 L (2.50-4.10) g/dL Albumin/Globulin Ratio 1.50 (1.3-2.0) mg/g Ur Collection Type Clean catch urine Urine Color Yellow Urine Clarity Clear (CLEAR) Urine pH 5.5 (5.0-8.5) Ur Specific Tony 1.015 (1.005-1.030) Urine Protein 30 (NEG) mg/dl Urine Glucose (UA) 100 (NEG) mg/dL Urine Ketones Negative (NEG) Urine Occult Blood Negative (NEG) Urine Nitrate Negative (NEG) Urine Bilirubin Negative (NEG) Urine Urobilinogen 0.2 (0.2) EU/dL Ur Leukocyte Esterase Negative (NEG) Urine RBC None (NONE) /hpf Urine WBC None (NONE) Ur Squamous Epith Cells Rare (NONE) Ur Renal Epithelial Cell None (NONE) Urine Crystals None Urine Bacteria Rare (NONE) Urine Casts None (NONE) Urine Mucus None (NONE) Urine Trichomonas None (NONE) Urine Yeast None (NONE) Ur Culture Indicated? Culture not set - Patient's Progress Pain Medication Addressed: POSITIVE: Not Applicable School/Work Release Addressed: POSITIVE: Not Applicable Re-Examine Time: 19:30 Re-Examine Comment: Bladder scan shows no urinary and bladder post void. Results of radiographic studies and laboratory studies discussed with patient and . Advised patient and that there is no evidence of pneumonia or other acute cardiopulmonary problems. Urinalysis did not show any hematuria and CT scan of abdomen and pelvis showed normal-appearing kidneys. Status: POSITIVE: Unchanged, Re-Examined - Consult Counseled: POSITIVE: Patient, Family, RE: Lab Results, RE: Radiology Results, RE : DX, RE: Need for F/U Patient Care Time - Estimated PCT Patient Care Time (In Minutes): 60 Vital Signs - VS Reviewed Vital Signs Reviewed: Yes Discharge Clinical Impression: Cough, Upper respiratory infection Discharge Disposition: Discharged to Home Condition: Good Patient Instructions Given at Discharge: Upper Respiratory Infection (ED) Additional Instructions: I have checked you over very carefully. Your blood and urine tests are all normal. There is no evidence of blood in the urine. CT scan and chest x-ray show no pneumonias. No blood clots in the lung. CT scan of the abdomen and pelvis shows no kidney lesions or any other sources for blood in the urine. There is no blood in your urine on our evaluation today. I think you most likely have a viral upper respiratory infection and I would not recommend antibiotics at this time. Follow-up with your primary care provider and for 5 days. Use nebulizer up to every 4 hours. Return here if condition worsens. Follow Up With: MICHELLE RODRIGUEZ [Primary Care Provider] - (Instructions as above. Follow-up with your primary care provider. Return here as necessary.)
== END 2016-10-03 19:48 | disposition home or self-care (01) ==
LOC: ER 15:59
DX: J06.9 Acute upper respiratory infection, unspecified (principal); R50.9 Fever, unspecified; I25.10 Atherosclerotic heart disease of native coronary artery without angina pectoris; R31.9 Hematuria, unspecified; R05 Cough; Z86.718 Personal history of other venous thrombosis and embolism; Z79.01 Long term (current) use of anticoagulants; Z86.711 Personal history of pulmonary embolism
CPT/HCPCS: 36415; 71020; 71260; 74177; 80053; 81001; 81003; 82803; 83880; 85025; 85379; 85610; 85730; 86140; 87040; 87077; 87186 ×2; 94640; 96360; 96361; 99283 ×2; J7620; J7030

== ENCOUNTER → 2016-10-07 | Outpatient (CLI) | payer OTHER, MEDICARE | LOC: MMPC 09:00 | PROVIDERS: ATTEND Internal Medicine | DX: Z79.01 Long term (current) use of anticoagulants (principal); Z51.81 Encounter for therapeutic drug level monitoring; Z86.718 Personal history of other venous thrombosis and embolism; Z86.711 Personal history of pulmonary embolism | CPT/HCPCS: 85610 ==

== ENCOUNTER → 2016-10-08 | Outpatient (CLI) | payer OTHER, MEDICARE | LOC: MMPC 11:11 | PROVIDERS: ATTEND Internal Medicine | DX: J44.0 Chronic obstructive pulmonary disease with (acute) lower respiratory infection (principal); J01.10 Acute frontal sinusitis, unspecified | CPT/HCPCS: 99214; G0463 ==

== ENCOUNTER → 2016-11-04 | Outpatient (CLI) | payer OTHER, MEDICARE | LOC: MMPC 09:00 | PROVIDERS: ATTEND Internal Medicine | DX: Z79.01 Long term (current) use of anticoagulants (principal); Z86.718 Personal history of other venous thrombosis and embolism; Z86.711 Personal history of pulmonary embolism | CPT/HCPCS: 85610 ==

== ENCOUNTER → 2016-11-15 | Outpatient (CLI) | payer OTHER, MEDICARE ==
[2016-11-15 08:10] LABS: BUN/CREATININE RATIO 24.44 (6-20); CALCIUM 9.7 mg/dL (8.7-10.7); CHOL/HDL RATIO 4.05 RATIO (0-4.0); LDL CHOLESTEROL,CALCULATED 76.6 mg/dL; SERUM ALBUMIN 3.8 g/dL (3.5-4.8)
[2016-11-15 08:11] LABS: HEMOGLOBIN A1C 7.16 % (4.2-6.0)
[2016-11-15 08:12] LABS: CREATININE, URINE 169.7 MG/DL (15-500)
--- NOTE | 2016-11-15 10:34 | DI ---
US RETROPERITONEUM,11/15/2016 7:39 AM: Clinical History: Hematuria Previous Exam: None at this facility. Findings: Multiple grayscale and color Doppler sonographic images are obtained through the retroperitoneum. The right kidney is normal measuring 13.0 cm in length without hydronephrosis nor nephrolithiasis. The left kidney is also normal measuring 13.0 cm in length without hydronephrosis nor nephrolithiasis . The urinary bladder is within normal limits. There is normal ureteral jets. Impression: Normal retroperitoneal ultrasound.
== END ==
LOC: LAB 07:29
PROVIDERS: ATTEND Urology
DX: R31.9 Hematuria, unspecified (principal); E11.9 Type 2 diabetes mellitus without complications; Z79.4 Long term (current) use of insulin; E78.5 Hyperlipidemia, unspecified; I10 Essential (primary) hypertension
CPT/HCPCS: 36415; 76770; 80053; 80061; 82043; 82550; 83036

== ENCOUNTER → 2016-11-18 | Outpatient (CLI) | payer OTHER, MEDICARE | LOC: MMPC 11:11 | PROVIDERS: ATTEND Internal Medicine | DX: R07.9 Chest pain, unspecified (principal); E11.9 Type 2 diabetes mellitus without complications; I10 Essential (primary) hypertension; E78.5 Hyperlipidemia, unspecified; L57.0 Actinic keratosis; G56.02 Carpal tunnel syndrome, left upper limb; R32 Unspecified urinary incontinence | CPT/HCPCS: 17004; G0463; 99214 ==

== ENCOUNTER → 2016-12-02 | Outpatient (CLI) | payer OTHER, MEDICARE | LOC: MMPC 09:00 | PROVIDERS: ATTEND Internal Medicine | DX: Z79.01 Long term (current) use of anticoagulants (principal); Z51.81 Encounter for therapeutic drug level monitoring; Z86.711 Personal history of pulmonary embolism; Z86.718 Personal history of other venous thrombosis and embolism | CPT/HCPCS: 85610 ==